=== PATIENT | female | born 1995 | race Caucasian/White ===

== ENCOUNTER 2019-03-22 13:06 | Emergency (ER) | payer SELFPAY ==
--- NOTE | 2019-03-22 13:19 | ED Physician Documentation ---
Female Urogenital Problems - HISTORIAN Historian: patient - HPI Stated Complaint: vaginal spotting Chief Complaint: Female Urogenital Problems Additional Information: Patient presents to ED with vaginal spotting and cramping since having sexual intercourse 2 hours ago. Patient reports 6 weeks gestation and LMP December 2018. 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 She has not seen baby formula worker yet. Onset: hours (2) Severity: mild Location of Pain: abdominal pain (Left lower pelvic cramping) - Vaginal Bleeding Description of Menstrual: irregular period(s) Where was Test Done: home Care: No Sexual History: active Contraceptive: none - Associated Symptoms Urinary Symptoms: none Discharge: denies: vaginal discharge - ROS CONST: denies: fever GI/: denies: nausea CVS/RESP: denies: chest pain, shortness of breath EYES/ENT: none NEURO/PSYCH: denies: headache MS/SKIN/LYMPH: none - PAST HX Past History: endometriosis, other (miscarriage) Other History: none Surgeries/Procedures: none Allergies/Adverse Reactions: Allergies Allergy/AdvReac Type Severity Reaction Status Date / Time latex Allergy Verified 03/22/19 13:56 Home Medications: Ambulatory Orders Medication Instructions Recorded NK 03/22/19 - SOCIAL HX Smoking History: non-smoker Alcohol Use: none Drug Use: none - FAMILY HX Family History: none - REVIEWED ASSESSMENTS Nursing Assessment Reviewed: Yes Vitals Reviewed: Yes ED Results Lab/Radiology - Radiology Radiology Impressions: Report Submission Date: Mar 22, 2019 3:20:48 PM SECURITY GUARD Patient Study Name: ASHLY WILLS Date: Mar 22, 2019 2:20:25 PM SECURITY GUARD Modality Type: US Gender: F Description: US TRANSVAGINAL PELVIS : 95 Institution: [facility] Physician: NATHAN BRUNO Ultrasound pelvis transabdominal Ultrasound pelvis transvaginal Ultrasound doppler pelvic ovaries with spectral analysis? Indication: REASON:VAGIONAL BLEEDING HISTORY: PT CLAIMS 6 WEEKS , PROVIDER NOTED POSITIVE HCG TEST BILAT OVARIAN ARTERIAL FLOW NOTED ?FOLICLE ON LEFT OVARY (Hx) / ITS.REASON vaginal bleeding Note time : 03/22/2019 3:09:33 PM User : Gladys Main REASON:VAGIONAL BLEEDING HISTORY: PT CLAIMS 6 WEEKS BILAT OVARIAN ARTERIAL FLOW NOTED ?FOLICLE ON LEFT OVARY -- (DICOM Hx) / ITS.REASON vaginal bleeding (Pt comments) (DICOM Hx) Findings: Transabdominal and transvaginal ultrasound show the uterus to measure 6.41 x 4.36 x 5.73 cm. The endometrial canal measures 1.19 cm. The right ovary measures 2.84 x 2.16 x 2.09 cm and the left ovary measures 2.95 x 2.65 x 2.02 cm. Small amount of free fluid in the left side of the pelvis is demonstrated. There is no intrauterine . Clinical correlation with patient's beta hCG and follow-up would be recommended. There is normal color flow and Doppler waveform to both ovaries. Impression: No evidence of intrauterine Small amount of free fluid See above Electronically signed on Mar 22, 2019 3:20:48 PM SECURITY GUARD by: Burke Mayers Female Urogenital Problems - EXAM General Appearance: no acute distress, alert EENT: ENRIQUE Respiratory: no resp. distress, breath sounds nml CVS: reg rate & rhythm, heart sounds normal Abdomen: soft, non-tender, no distention Back: non-tender. No: CVA tenderness Skin: color nml, no rash, warm,dry Extremities: non-tender Neuro: oriented X3, mood/affect nml Discharge Clincal Impression: Vaginal spotting Referrals: Primary Doctor,No [Primary Care Provider] - 2 Days Additional Instructions: 1. Follow up with baby formula worker as soon as possible. 2. No sexual intercourse until cleared by baby formula worker 3. Return to ER for new or worsening symptoms Condition: Stable Disposition: 01 HOME, SELF-CARE Decision to Admit: NO Date of Decison to Admit: 03/22/19 Decision Time: 15:26
[2019-03-22 13:44] VITALS: BP 114/71
[2019-03-22 13:48] LABS: BASOPHILS % 0.6 % (0.0-1.5); NEUTROPHILS # 10.4 # k/uL (1.4-7.7)
[2019-03-22 14:00] LABS: eGFR (Non-African) > 60
--- NOTE | 2019-03-22 15:25 | Diagnostic Imaging Report ---
PATIENT MR#: [id number] PATIENT PATIENT NAME: ASHLY WILLS DATE OF : 1995 REFERRING PHYSICIAN: Stacey Rodrigues EXAM DATE: 03/22/2019 ACCESSION NUMBER: [id number] EXAM DESCRIPTION: US TRANSVAGINAL PELVIS Ultrasound pelvis transabdominal Ultrasound pelvis transvaginal Ultrasound doppler pelvic ovaries with spectral analysis Indication: REASON:VAGIONAL BLEEDING HISTORY: PT CLAIMS 6 WEEKS , PROVIDER NOTED POSITIVE HCG TEST BILAT OVARIAN Note time : 03/22/2019 3:09:33 PM User : Gladys Paige REASON:VAGIONAL BLEEDING HISTORY: PT CLAIMS 6 WEEKS BILAT OVARIAN ARTERIAL FLOW NOTED ?FOLIC LE ON LEFT OVARY Findings: Transabdominal and transvaginal ultrasound show the uterus to measure 6.41 x 4.36 x 5.73 cm . The endometrial canal measures 1.19 cm. The right ovary measures 2.84 x 2.16 x 2.09 cm and the left ovary measures 2.95 x 2.65 x 2.02 cm. Sma ll amount of free fluid in the left side of the pelvis is demonstrated. There is no intrauterine . Clinical co rrelation with patient's beta hCG and follow-up would be recommended. There is normal color flow and Doppler waveform to both ovaries. Impression: No evidence of intrauterine Small amount of free fluid See above Read by: Dr. Burke Mayers Transcribed by: Transcribed Date: Electronically signed by: Dr. Burke Mayers Date signed: 03/22/2019 3:24:51 PM
== END 2019-03-22 15:40 | disposition home or self-care (01) ==
LOC: ED 13:06
DX: N93.9 Abnormal uterine and vaginal bleeding, unspecified (principal)
CPT/HCPCS: 76830; 80053; 84703; 85025; 99282